=== PATIENT | female | born 1980 | race Two or more races ===

== ENCOUNTER → 2020-08-15 | Outpatient (CLI) | payer OTHER | END | disposition home or self-care (01) | LOC: RX STUDY 09:45 | PROVIDERS: ATTEND Specialist | DX: N83.02 Follicular cyst of left ovary (principal); N84.0 Polyp of corpus uteri ==

== ENCOUNTER 2021-07-22 11:02 | Outpatient (CLI) | payer OTHER | END 2021-07-22 11:05 | disposition home or self-care (01) | LOC: SONOGRAMA 11:02 | DX: N93.9 Abnormal uterine and vaginal bleeding, unspecified (principal); N84.0 Polyp of corpus uteri ==

== ENCOUNTER 2021-09-09 11:23 | Outpatient (CLI) | payer OTHER | END 2021-09-09 11:26 | disposition home or self-care (01) | LOC: MAMO-SONO 11:23 | DX: N60.11 Diffuse cystic mastopathy of right breast (principal); N60.12 Diffuse cystic mastopathy of left breast ==

== ENCOUNTER 2022-11-17 08:41 | Emergency (ER) | payer OTHER ==
[~2022-11-17] VITALS: Ht 162.6 cm; Wt 68.0 kg
[2022-11-17] MEDS ORDERED: OSEL75CA PO (11:03)
[2022-11-17] MEDS ORDERED: TUSNEL LIQUID178 ML PO (11:03)
[2022-11-17] MEDS ORDERED: DOLOGEN CAPLET1 EACH PO (11:03)
== END 2022-11-17 11:15 | disposition home or self-care (01) ==
LOC: ER 08:41
DX: J10.1 Influenza due to other identified influenza virus with other respiratory manifestations (principal); B34.9 Viral infection, unspecified; Z20.822 Contact with and (suspected) exposure to COVID-19

== ENCOUNTER 2024-03-26 16:49 | Emergency (ER) | payer OTHER ==
[~2024-03-26] VITALS: Ht 162.6 cm; Wt 71.2 kg
[~2024-03-26 16:49] MED LIST: DOLOGEN CAPLET1 EACH PO; OSEL75CA PO; TUSNEL LIQUID178 ML PO
[2024-03-26 17:02] VITALS: BP 107/78; O2SAT 95
[2024-03-26] MEDS ORDERED: MOUNJARO2.5 MG/0.5 SQ (17:04)
[2024-03-26] MEDS ORDERED: 0.9 % SODIUM CHLORIDE 1,000 ML IV ONE (17:30)
[2024-03-26] MEDS ORDERED: ONDANSETRON HCL 2 MG/ML VIAL IV ONE (17:30)
[2024-03-26] MEDS ORDERED: KETOROLAC TROMETHAMINE 30 MG VIAL IV ONE (17:30)
[2024-03-26] MEDS ORDERED: LACTOBACILLUS ACIDOPHILUS 1 CAP CAP PO ONE (17:30)
[2024-03-26] MEDS ORDERED: FAMOTIDINE/PF 20 MG/2 ML VIAL IV ONE (17:30)
[2024-03-26 17:59] LABS: HEMATOCRIT 45.7 % (36.0-45.00); HEMOGLOBIN 15.6 g/dL (12.0-15.00); MEAN CELL VOLUME 90.3 fL (80.00-100.00); MEAN CORPUSCULAR HEMOGLOBIN 30.8 pg (27.00-32.0); MEAN CORPUSCULAR HGB CONC 34.1 g/dl (32.0-36.0); PLATELET COUNT 323 K/uL (150-450); RED BLOOD COUNT 5.07 M/uL (4.00-6.00); RED CELL DISTRIBUTION WIDTH 13.7 % (11.5-14.5)
[2024-03-26 18:11] LABS: ALBUMIN 3.8 gm/dL (3.4-5.0); BILIRUBIN TOTAL 1.21 mg/dL (0.3-1.2); CALCIUM 9.3 mg/dL (8.5-10.1); CREATININE SERUM 0.73 mg/dL (0.55-1.02); GFR 87.43; GLOBULINA 4.8 G/DL (2.4-3.5); POTASSIUM 4.65 mEq/L (3.5-5.1); TOTAL PROTEIN 8.6 gm/dL (6.4-8.2)
[2024-03-26 18:41] LABS: PH,URINE 5.5 (5.0-8.0); URINE APPEARANCE Cloudy; URINE BILIRRUBIN Negative (NEGATIVE); URINE COLOR Dark Yellow; URINE GLUCOSE Negative (NEGATIVE); URINE LEUKOCYTE Negative; URINE NITRATE Negative; URINE PROTEIN 30 (NEGATIVE); URINE UROBILINOGEN 0.2 E.U./dl
[2024-03-26 18:44] LABS: URINE CAST 2.13 uL (0.0-1.40); URINE EPITHELIAL CELLS 86.2 uL (0.0-38.8); URINE RBC 22.7 uL (0.0-20.8); URINE WBC 139.9 uL (0.0-23.2)
[2024-03-26 18:56] LABS: URINE BACTERIA > 9821.5 uL (0.0-1933); URINE BLOOD TRACE; URINE KETONE 80 (NEGATIVE)
[2024-03-26] MEDS ORDERED: METOCLOPRAMIDE HCL 5 MG/ML VIAL IV ONE (20:15)
[2024-03-26] MEDS ORDERED: INTESTINEX680 M1 PO (21:08)
[2024-03-26] MEDS ORDERED: ONDANSETRON HCL4 MG PO (21:08)
[2024-03-26] MEDS ORDERED: PEPCID AC20 MG PO (21:08)
[2024-03-26] MEDS ORDERED: CIPRO500 MG PO (21:09)
== END 2024-03-26 21:20 | disposition home or self-care (01) ==
LOC: ER 16:51
PROVIDERS: Nurse Practitioner Family
DX: K52.89 Other specified noninfective gastroenteritis and colitis (principal); R11.2 Nausea with vomiting, unspecified; Z20.822 Contact with and (suspected) exposure to COVID-19